=== PATIENT | female | born 1945 | race African-American/Black ===

== ENCOUNTER → 2016-09-15 | Outpatient (CLI) | payer OTHER ==
[~2016-09-15] VITALS: Ht 160 cm; Wt 83.0 kg
[~2016-09-15] MED LIST: AMITRIPTYLINE H10 M1 PO; CYCLOBENZAPRINE10 MG PO; CYMBALTA30 MG PO; HYDROCODON-ACE1 EAC8 PO; HYDROCODONE-AP1 EA11 PO; HYDROCODONE-APA1 TA1 PO; LISINOPRIL20 MG PO; NEURONTIN 300300 M1 PO; NEURONTIN 300M300 M2 PO; NEURONTIN600 MG PO; ZESTORETIC 20-1 EAC3 PO
--- NOTE | ~2016-09-15 | HPC ---
[facility] [place] [address] PAIN MANAGEMENT CONSULTATION Name: SKYLER RADER Room #: REG JENNIE Luu#: [id number] Admission: 09/15/16 Attend Phys: Lexx Vidal DO Discharge: Date of : 49 Report #: [id number] THIS REPORT FOR: //name// CC: Man Vidal DATE OF SERVICE: 09/15/2016 The patient is a very pleasant 71-year-old female. She was prior seen in May 2014, about 2-1/2 years ago, for cervical radicular symptoms. Cervical epidural injection times 2 afforded good relief. She prior had had cervical injections in 2010. She returns to pain clinic today noting that the injections at that time afforded good relief. Pain has recurred without antecedent trauma and overuse. She notes pain is primarily in the neck, upper shoulders. She notes it "feels like her neck is being stretched." She notes symptoms did seem to recur in February when she returned to work. 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 She notes that it is fairly stressful. She notes turning her neck or bending exacerbates her pain. Gets some relief stretching her arms. She describes constant, pulling pain. She rates it "10" on a 0-10 visual analogue scale. REVIEW OF SYSTEMS: Complete review of systems was gone over with the patient. She is . She recently started smoking about 5 years ago. She had smoked off and on intermittently prior. She has history of hypertension, treated with lisinopril and hydrochlorothiazide. Other than cervical radicular symptoms has enjoyed reasonably good health. She does have a prominent dorsocervical fat pad. No history of excessive exogenous steroid use. She does not exhibit any symptoms of glucose intolerance, by history. She has had surgeries on her feet in the late 80s, early 90s, bunions bilaterally. Pain impact score averages about 7.2 for all indices queried. PHYSICAL EXAMINATION: GENERAL: Reveals a 5 feet 3 inches, 186 pounds female, BMI is 32.4 kilograms per meter squared. VITAL SIGNS: Blood pressure is 104/71, pulse 75 and respirations are 14. Cranial nerves II-XII are grossly intact. HEENT: Pupils equal, reactive to light and accommodation. Extraocular muscles are intact. NECK: Cervical range of motion is modestly limited. Both flexion and extension exacerbates some neck pain. Cervical extension gives her a feeling of stretching in the chest muscles. Upper extremity strength; however, is [facility] [address] [place] [address] PAIN MANAGEMENT CONSULTATION Name: SKYLER RADER Room #: [facility]#: [id number] Admission: 09/15/16 Attend Phys: Lexx Vidal DO Discharge: Date of : 49 Report #: [id number] generally preserved, 4/5 to all muscle groups tested. Hand grasp is symmetric. Has a positive radial Tinel's on the right. HEART: Regular rhythmical without murmur. LUNGS: Clear to auscultation. Again does have a prominent dorsocervical fat pad, appearance of some cervical kyphosis. Tender in the splenius capitis and trapezius muscles. There are no discrete trigger points noted at this time. She does have a gynecoid distribution of fat, tender in the low back, left greater than right with a positive Laurel test on the left. Lower extremity strength is symmetric. Straight leg raise is negative. Patellar and Achilles reflexes are preserved. ASSESSMENT: Symptomatic cervical radiculopathy by history with a component of myofascial pain, concern for cervical spondylosis. 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 She does have bilateral neural foraminal narrowing at C6-7 and C7-T1 (left greater than right neural foraminal narrowing above this, those symptoms are greater on the right). RECOMMENDATION: 1. Cervical epidural injection under fluoroscopy today. 2. We will start Cymbalta 30 mg 1 a day for myofascial component of pain. Follow up in 1 month for reevaluation. May benefit from a left SI joint injection if indicated clinically. Thank you for allowing me to participate in this patient's care. PROCEDURE NOTE: Cervical epidural injection under fluoroscopy. PROCEDURE NOTE: After written and informed consent was obtained including risk of dural puncture, spinal cord trauma, paralysis and increased pain, the patient was taken to the fluoroscopy suite and placed in the prone position, with appropriate abdominal bolstering, neck was flexed, palms under the thighs. Skin was prepped with ChloraPrep. Sterile draping was applied. Skin wheal with 1% Xylocaine was raised. A 22-gauge 3-1/2 inch epidural Tuohy needle was placed via a midline approach at the C7-T1 interspace, advanced under biplanar fluoroscopy using continuous loss of resistance. With appropriate loss of resistance at the expected depth on lateral view, the glass loss of resistance syringe was disconnected. A low volume extension tubing was connected to the needle and a 5 mL syringe. Negative aspiration for cerebrospinal fluid or blood was noted. A 1 mL of Omnipaque was injected which showed spread within the epidural space on biplanar fluoroscopy. This was followed with 80 mg of triamcinolone plus 1 mL of 1.5% preservative Xylocaine. Needle was withdrawn to the interspinous ligament, 0.5 mL of Xylocaine was used to flush the needle. The needle was then completely withdrawn. The area was cleansed. Band-Aid was applied. The patient was allowed to move off the procedure table and ambulated [facility] [address] [place] [address] PAIN MANAGEMENT CONSULTATION Name: SKYLER RADER Room #: REG JENNIE Luu#: [id number] Admission: 09/15/16 Attend Phys: Lexx Vidal DO Discharge: Date of : 49 Report #: [id number] to the recovery room, monitored for an appropriate period of time, discharged in good and stable condition. <ELECTRONICALLY SIGNED> By: Lexx Vidal DO 09/18/16 1237 [id number] Lexx Vidal DO /nt
[2016-09-15 09:21] VITALS: BP 104/71
== END | disposition home or self-care (01) ==
LOC: PAIN 05:50
DX: M54.12 Radiculopathy, cervical region (principal); I10 Essential (primary) hypertension; F32.9 Major depressive disorder, single episode, unspecified; Z98.890 Other specified postprocedural states

== ENCOUNTER → 2016-10-06 | Outpatient (CLI) | payer OTHER ==
[~2016-10-06] VITALS: Ht 160 cm; Wt 82.1 kg
--- NOTE | ~2016-10-06 | HPC ---
[facility] [place] [address] PAIN MANAGEMENT CONSULTATION Name: SKYLER RADER Room #: REG JENNIE Luu#: [id number] Admission: 10/06/16 Attend Phys: Lexx Vidal DO Discharge: Date of : 49 Report #: [id number] THIS REPORT FOR: //name// CC: Man Vidal DATE OF SERVICE: 10/06/2016 The patient is a very pleasant 71-year-old female. She was prior seen in the pain clinic 09/15/2016 (she had prior been seen for cervical radicular symptoms (back in 05/2014). On her reconsult last visit, we noted symptoms compatible with cervical radiculopathy, started the patient on Cymbalta for myofascial pain and did cervical epidural injection. She returns to pain clinic today noting that the radicular symptoms seemed to be improved. In fact, she notes about 90% improvement of baseline pain, but still has paresthesia from about the elbow down to the index finger with some muscle spasms associated. She has been continued to take gabapentin 600 mg b.i.d. for some time. New medication is Cymbalta, but the patient feels that she is developing some increased salivation that she attributes to the gabapentin. I pointed out to the patient that gabapentin is actually more associated with xerostomia. Nonetheless, we have elected to trial a 7-day rotation from gabapentin 600 mg b.i.d. to Lyrica 75 mg b.i.d. I did take the liberty of giving the patient samples for this medication. We did review Cymbalta, the only new medication, and again, it too seemed to be more associated with xerostomia as well. PHYSICAL EXAMINATION: Otherwise shows 71-year-old female, BMI is 32.1 kilograms per meter squared. Vital signs are stable as noted in the EMR. Cervical range of motion still shows a modestly positive Lhermitte's and subjective paresthesia going into the left greater than right thumb and index finger somewhere in the C6-C7 distribution. RECOMMENDATIONS: We will seek authorization for repeat cervical epidural injection under fluoroscopy given 90% relief of cervical radicular pain, but ongoing C6-C7 paresthesia. <ELECTRONICALLY SIGNED> By: Lxex Vidal DO 10/06/16 1138 [id number] [id number] Lexx Vidal DO /nt
[2016-10-06 09:15] VITALS: BP 125/69
== END ==
LOC: PAIN 06:45
DX: R20.8 Other disturbances of skin sensation (principal); M54.12 Radiculopathy, cervical region; F17.200 Nicotine dependence, unspecified, uncomplicated

== ENCOUNTER → 2016-10-13 | Outpatient (CLI) | payer OTHER ==
[~2016-10-13] VITALS: Ht 160 cm; Wt 83.5 kg
[~2016-10-13] MED LIST changes: +LYRICA 50 MG50 MG PO; +LYRICA 75 MG CA75 MG PO; +ROBITUSSIN15 MG/5 ML PO
--- NOTE | ~2016-10-13 | HPC ---
[facility] [address] [place] [place] [address] PAIN MANAGEMENT CONSULTATION Name: SKYLER RADER Room #: REG Anderson Luu#: [id number] Admission: 10/13/16 Attend Phys: Lexx Vidal DO Discharge: Date of : 49 Report #: [id number] THIS REPORT FOR: //name// CC: Man Vidal The patient is a very pleasant 71-year-old female, seen last in the pain clinic 10/06/2016. She prior had a cervical epidural injection on 09/15/2016, with significant improvement of baseline pain, still had cervical radicular symptoms, we sought authorization for epidural injection under fluoroscopy today. She returns to pain clinic noting pain continues to be problematic with pain left neck, shoulder, and arm. I started her on Lyrica 75 mg b.i.d. With this, unfortunately she is getting a little cognitive impairment and sedation. She had prior failed gabapentin due to cognitive impairment. Today, we have elected to give the patient samples for 50 mg Lyrica and a prescription for same (50 mg b.i.d., dispense 60 tablets with 3 refills). ASSESSMENT: Symptomatic cervical radiculopathy, component of neuropathic pain. RECOMMENDATION: 1. Medication changes as noted above. 2. Cervical epidural injection under fluoroscopy. PROCEDURE: Cervical epidural injection under fluoroscopy. PROCEDURE NOTE: After written and informed consent was obtained including risk of dural puncture, spinal cord trauma, paralysis and increased pain, the patient was taken to the fluoroscopy suite and placed in the prone position, with appropriate abdominal bolstering, neck was flexed, palms under the thighs. Skin was prepped with ChloraPrep. Sterile draping was applied. Skin wheal with 1% Xylocaine was raised. A 22-gauge 3-1/2 inch epidural Tuohy needle was placed via a midline approach at the C7-T1 interspace, advanced under biplanar fluoroscopy using continuous loss of resistance. With appropriate loss of resistance at the expected depth on lateral view, the glass loss of resistance syringe was disconnected. A low volume extension tubing was connected to the needle and a 5 mL syringe. Negative aspiration for cerebrospinal fluid or blood was noted. One mL of Omnipaque was injected which showed spread within the epidural space on biplanar fluoroscopy. This was followed with 80 mg of triamcinolone plus 1 mL of 1.5% preservative Xylocaine. Needle was withdrawn to the interspinous ligament, 0.5 mL of Xylocaine was used to flush the needle. The needle was then completely withdrawn. The area was cleansed. Band-Aid was applied. The patient was allowed to move off the procedure table and ambulated [address] [address] PAIN MANAGEMENT CONSULTATION Name: SKYLER RADER Room #: REG CL Jus#: [id number] Admission: 10/13/16 Attend Phys: Lexx Vidal DO Discharge: Date of : 49 Report #: [id number] to the recovery room, monitored for an appropriate period of time, discharged in good and stable condition. By: [id number] Lexx Vdial DO /nt
[2016-10-13 10:27] VITALS: BP 141/75
== END | disposition home or self-care (01) ==
LOC: PAIN 07:11
DX: M54.12 Radiculopathy, cervical region (principal); F17.200 Nicotine dependence, unspecified, uncomplicated